=== PATIENT | female | born 2005 | race Caucasian/White ===

== ENCOUNTER → 2023-08-19 14:38 | Outpatient (REF) | payer OTHER, SELFPAY | LOC: HWRAD 14:38 | PROVIDERS: ATTENDING PHYSICIAN Internal Medicine Rheumatology; FAMILY PHYSICIAN Pediatrics | DX: G89.29 Other chronic pain (principal); M25.551 Pain in right hip; M25.552 Pain in left hip; M25.561 Pain in right knee; M25.562 Pain in left knee; M47.819 Spondylosis without myelopathy or radiculopathy, site unspecified; M54.50 Low back pain, unspecified; M79.7 Fibromyalgia; R68.84 Jaw pain | CPT/HCPCS: 70100 ==